=== PATIENT | male | born 1950 | race Caucasian/White ===

== ENCOUNTER → 2024-03-13 07:05 | Outpatient (REF) | payer OTHER, SELFPAY | LOC: HWRCS 07:05 | PROVIDERS: ATTENDING PHYSICIAN Internal Medicine Cardiovascular Disease; FAMILY PHYSICIAN Internal Medicine | DX: I10 Essential (primary) hypertension (principal); I35.0 Nonrheumatic aortic (valve) stenosis | CPT/HCPCS: 93306 ==

== ENCOUNTER → 2025-03-18 07:56 | Outpatient (REF) | payer OTHER, SELFPAY | LOC: HWRCS 07:56 | PROVIDERS: ATTENDING PHYSICIAN Internal Medicine Cardiovascular Disease; FAMILY PHYSICIAN Internal Medicine | DX: I35.0 Nonrheumatic aortic (valve) stenosis (principal) | CPT/HCPCS: 93306 ==